=== PATIENT | female | born 1945 | race Asian ===

== ENCOUNTER → 2021-10-16 | Outpatient (CLI) | payer MEDICARE | LOC: COL.VAS 09:00 | DX: I65.23 Occlusion and stenosis of bilateral carotid arteries (principal) ==

== ENCOUNTER → 2023-08-18 | Outpatient (CLI) | payer MEDICARE, OTHER | LOC: MC.RAD 09:08 | DX: Z12.31 Encounter for screening mammogram for malignant neoplasm of breast (principal) ==